=== PATIENT | male | born 1990 ===

== ENCOUNTER 2024-04-15 07:48 | Outpatient (REF) | payer SELFPAY | END 2024-04-15 07:49 | disposition home or self-care (01) | LOC: HO.WMHL 07:48 | PROVIDERS: Visit Provider Nurse Practitioner | DX: Z13.89 Encounter for screening for other disorder (principal) | CPT/HCPCS: 81001; 87086; 87088; 87186 ==

== ENCOUNTER 2024-06-03 11:31 | Outpatient (REF) | payer SELFPAY | END 2024-06-03 11:32 | disposition home or self-care (01) | LOC: HO.WMHL 11:31 | PROVIDERS: Visit Provider Nurse Practitioner Acute Care | DX: E86.0 Dehydration (principal); E46 Unspecified protein-calorie malnutrition; E03.9 Hypothyroidism, unspecified | CPT/HCPCS: 36415; 80048; 82040; 84134; 84443 ==